=== PATIENT | female | born 1960 | race American Indian/Alaskan Native ===

== ENCOUNTER 2020-07-22 20:22 | Emergency (ER) | payer BC ==
--- NOTE | 2020-07-22 22:57 | Cat Scan Report ---
CT HEAD WITHOUT CONTRAST INDICATION / CLINICAL INFORMATION: neuro deficits <6hrs or sx present upon awakening. TECHNIQUE: All CT scans at this location are performed using CT dose reduction for ALARA by means of automated e xposure control. COMPARISON: None available. FINDINGS: HEMORRHAGE: No evidence of intracranial hemorrhage or extra-axial fluid collection. EXTRA-AXIAL SPACES: Cortical sulci, sylvian fissures and basilar cisterns have an unremarkable appear ance. VENTRICULAR SYSTEM: The third and lateral ventricles are of normal size and configuration. CEREBRAL PARENCHYMA: No areas of abnormal brain parenchymal attenuation are identified. There is no i ndication of recent infarction. MIDLINE SHIFT OR HERNIATION: There is no mass effect. CEREBELLUM / BRAINSTEM: Brainstem and cerebellum have an unremarkable appearance. MIDLINE STRUCTURES:No abnormalities of the pituitary gland or pineal region are identified. INTRACRANIAL VESSELS:No abnormalities are identified on this noncontrast head CT. ORBITS: visualized portions of the orbits have an unremarkable appearance. SOFT TISSUES of HEAD: No significant abnormality. CALVARIUM: Evaluation of bone windows reveals no abnormalities. PARANASAL SINUSES / MASTOID AIR CELLS: Visualized portions of the paranasal sinuses are free from inf lammatory mucosal disease. Mastoid air cells are normally pneumatized. IMPRESSION: 1. No intracranial abnormalities are identified on head CT without contrast. Signer Name: Donte Soto MD Signed: 07/22/2020 10:53 PM Workstation Name: [id number]
[2020-07-22 22:58] LABS: Basophils % (Auto) 0.4 % (0.0-1.8); Eosinophils % (Auto) 0.6 % (0.0-4.3); Hematocrit 36.4 % (30.3-42.9); Lymphocytes # (Auto) 0.8 K/mm3 (1.2-5.4); Mean Corpuscular HGB Conc 33 % (30-34); Mean Corpuscular Volume 83 fl (79-97); Monocytes # (Auto) 0.2 K/mm3 (0.0-0.8); Monocytes % (Auto) 3.5 % (0.0-7.3); Platelet Count 185 K/mm3 (140-440); Red Blood Count 4.39 M/mm3 (3.65-5.03); Red Cell Distribution Width 16.5 % (13.2-15.2)
[2020-07-22 23:10] LABS: Blood Urea Nitrogen 9 mg/dL (7-17); Calcium 9.5 mg/dL (8.4-10.2); Hemolysis Index 5
[2020-07-22 23:18] LABS: INR 1.17 (0.87-1.13); Partial Thromboplastin Time 26.9 Sec. (24.2-36.6)
[2020-07-22 23:20] LABS: BUN/Creatinine Ratio 13
--- NOTE | 2020-07-22 23:55 | Emergency Department Report ---
ED Headache HPI - General Chief Complaint: Headache Stated Complaint: HEADACHE Source: patient - History of Present Illness Initial Comments: Patient is a 60-year-old -[place] female with a history of osteoarthritis and asthma who presents to the ED with complaint of acute onset persistent left retro-orbital headache that radiates to the parietal and occipital scalp persistently for the last 6 hours. Patient also complains of nausea and blurry vision in the left eye. Patient states that she took Tylenol prior to arrival in the ED and that the pain though improved significantly, but is still present. Patient denies dizziness, syncope, chest pain, shortness of breath, neck pain, back pain, change in vision, lightheadedness, change in speech, upper and lower extremity weakness, numbness and tingling, dysphagia, dysphonia, cough, traumatic injury, fever and chills, nasal and sinus congestion or sore throat. Timing/Duration: 4-6 hours, constant, waxing and waning Quality: severe, constant Head Injury Location: frontal, occipital Recent Head Trauma: no recent headache/trauma Associated Symptoms: denies symptoms, nausea/vomiting. denies: confusion, fatigue, facial pain, fever/chills, flushing, loss of consciousness, nasal congestion, nasal drainage, numbness in legs/feet, seizures, sinus infection, stiff neck, vision changes, weakness, other Allergies/Adverse Reactions: Allergies latex Allergy (Verified 12/21/19 15:46) Rash Home Medications: Ambulatory Orders Butalb/Acetamin/Caff 50-325-40 [Fioricet 50-325-40] 1 - 2 tab PO Q6HR PRN #12 tab 07/22/20 Ibuprofen [Motrin] 600 mg PO Q8H PRN #24 tablet 07/22/20 Ondansetron [Zofran Odt] 4 mg PO Q6HR PRN #20 tab.rapdis 07/22/20 ED Review of Systems ROS: Stated complaint: HEADACHE Other details as noted in HPI Constitutional: denies: chills, fever Eyes: denies: eye pain, eye discharge, vision change ENT: denies: ear pain, throat pain Respiratory: denies: cough, shortness of breath, wheezing Cardiovascular: denies: chest pain, palpitations Endocrine: no symptoms reported Gastrointestinal: nausea. denies: abdominal pain, diarrhea Genitourinary: denies: urgency, dysuria, discharge Musculoskeletal: denies: back pain, joint swelling, arthralgia Skin: denies: rash, lesions Neurological: headache. denies: weakness, paresthesias Psychiatric: denies: anxiety, depression Hematological/Lymphatic: denies: easy bleeding, easy bruising ED Past Medical Hx - Past Medical History Previous Medical History?: Yes Hx Hypertension: No Hx CVA: No Hx Heart Attack/AMI: No Hx Congestive Heart Failure: No Hx Diabetes: No Hx Liver Disease: No Hx Renal Disease: No Hx Sickle Cell Disease: No Hx Arthritis: Yes Hx Seizures: No Hx Asthma: Yes (last inhaler use 06/2019) Hx COPD: No Hx HIV: No - Surgical History Hx Pacemaker: No Hx Internal Defibrillator: No Additional Surgical History: Hysterectomy. lumpectomy - Social History Smoking Status: Never Smoker Substance Use Type: None - Medications Home Medications: Home Medications Medication Instructions Recorded Confirmed Last Taken Type Butalb/Acetamin/Caff 50-325-40 1 - 2 tab PO Q6HR PRN #12 tab 07/22/20 Unknown Rx [Fioricet 50-325-40] Ibuprofen [Motrin] 600 mg PO Q8H PRN #24 tablet 07/22/20 Unknown Rx Ondansetron [Zofran Odt] 4 mg PO Q6HR PRN #20 tab.rapdis 07/22/20 Unknown Rx ED Physical Exam - General Limitations: No Limitations General appearance: alert, in no apparent distress - Head Head exam: Present: atraumatic, normocephalic, normal inspection - Eye Eye exam: Present: normal appearance, PERRL, EOMI Pupils: Present: normal accommodation - ENT ENT exam: Present: normal exam, normal orophraynx, mucous membranes moist, TM's normal bilaterally, normal external ear exam - Neck Neck exam: Present: normal inspection, full ROM - Respiratory Respiratory exam: Present: normal lung sounds bilaterally. Absent: respiratory distress, wheezes, rales, rhonchi, chest wall tenderness, accessory muscle use - Cardiovascular Cardiovascular Exam: Present: regular rate, normal rhythm, normal heart sounds. Absent: systolic murmur, diastolic murmur, rubs, gallop - GI/Abdominal GI/Abdominal exam: Present: soft, normal bowel sounds. Absent: tenderness, guarding, rebound, hyperactive bowel sounds - Extremities Exam Extremities exam: Present: normal inspection, full ROM, normal capillary refill - Back Exam Back exam: Present: normal inspection, full ROM. Absent: tenderness, CVA tenderness (R), CVA tenderness (L), muscle spasm, paraspinal tenderness, vertebral tenderness - Neurological Exam Neurological exam: Present: alert, oriented X3, CN II-XII intact, normal gait, reflexes normal - Psychiatric Psychiatric exam: Present: normal affect, normal mood - Skin Skin exam: Present: warm, dry, intact, normal color. Absent: rash ED Course Vital Signs 07/22/20 20:26 Temperature 98.6 F Pulse Rate 99 H Respiratory 18 Rate Blood Pressure 158/100 O2 Sat by Pulse 93 Oximetry ED Medical Decision Making - Lab Data Result diagrams: 07/22/20 22:22 07/22/20 22:22 - Radiology Data Radiology results: report reviewed, image reviewed Findings [facility] [address] [place] [address] Cat Scan Report Signed Patient: CHRIS HATCH MR#: [id number] : 1960 Acct:[id number] Age/Sex: 60 / F ADM Date: 07/22/20 Loc: ED Attending Dr: Ordering Physician: GIACOMO DEL CID MD Date of Service: 07/22/20 Procedure(s): CT head/brain wo con Accession Number(s): [id number] cc: GIACOMO DEL CID MD CT HEAD WITHOUT CONTRAST INDICATION / CLINICAL INFORMATION: neuro deficits <6hrs or sx present upon awakening. TECHNIQUE: All CT scans at this location are performed using CT dose reduction for ALARA by means of automated exposure control. COMPARISON: None available. FINDINGS: HEMORRHAGE: No evidence of intracranial hemorrhage or extra-axial fluid collection. EXTRA-AXIAL SPACES: Cortical sulci, sylvian fissures and basilar cisterns have an unremarkable appearance. VENTRICULAR SYSTEM: The third and lateral ventricles are of normal size and configuration. CEREBRAL PARENCHYMA: No areas of abnormal brain parenchymal attenuation are identified. There is no indication of recent infarction. MIDLINE SHIFT OR HERNIATION: There is no mass effect. CEREBELLUM / BRAINSTEM: Brainstem and cerebellum have an unremarkable appearance. MIDLINE STRUCTURES:No abnormalities of the pituitary gland or pineal region are identified. INTRACRANIAL VESSELS:No abnormalities are identified on this noncontrast head CT. ORBITS: visualized portions of the orbits have an unremarkable appearance. SOFT TISSUES of HEAD: No significant abnormality. CALVARIUM: Evaluation of bone windows reveals no abnormalities. PARANASAL SINUSES / MASTOID AIR CELLS: Visualized portions of the paranasal sinuses are free from inflammatory mucosal disease. Mastoid air cells are normally pneumatized. IMPRESSION: 1. No intracranial abnormalities are identified on head CT without contrast. Signer Name: Donte Soto MD Signed: 07/22/2020 10:53 PM Workstation Name: [id number] Transcribed By: Dictated By: Donte Soto MD Electronically Authenticated By: Donte Soto MD Signed Date/Time: 07/22/202252 DD/ 51 TD/TT: - Medical Decision Making This is a 60-year-old -[place] female with a history of osteoarthritis and asthma who presents to the ED with complaint of acute onset persistent left retro-orbital headache that radiates to the parietal and occipital scalp persistently for the last 6 hours. Patient also complains of nausea and blurry vision in the left eye. Patient states that she took Tylenol prior to arrival in the ED and that the pain though improved significantly, but is still present. In the ED, patient is alert and oriented x3 and is not in distress but appears to be in pain. Patient was treated for pain in the ED. Lab test results were reviewed and are all nonactionable. The head CT scan without contrast showed no acute intracranial abnormalities or hemorrhage. On reevaluation, patient pain is well controlled medication. Patient will discharge home on pain medications and advised to follow-up with her primary care physician in 3 to 5 days for reevaluation or return to the ED immediately if her symptoms get worse. - Differential Diagnosis sinusitis; sinus headache; tension headache; migraine headache;cluster h/a Critical care attestation.: If time is entered above; I have spent that time in minutes in the direct care of this critically ill patient, excluding procedure time. ED Disposition Clinical Impression: Severe frontal headaches Cluster headache syndrome, unspecified Qualifiers: Headache chronicity pattern: unspecified pattern Intractability: not intractable Qualified Code(s): G44.009 - Cluster headache syndrome, unspecified, not intractable Disposition: DC-01 TO HOME OR SELFCARE Is pt being admited?: No Does the pt Need Aspirin: No Condition: Stable Instructions: General Headache Without Cause, [id number], Sinus Headache, [id number] Additional Instructions: All lab test results were reviewed and are all nonactionable. The head CT scan without contrast showed no acute intracranial abnormalities or hemorrhage. Therefore take medications with food, drink plenty of fluids and follow-up with your primary care physician in 3 to 5 days for reevaluation. Return to the ED immediately if symptoms get worse. Prescriptions: Butalb/Acetamin/Caff 50-325-40 [Fioricet 50-325-40] 1 - 2 tab PO Q6HR PRN #12 tab PRN Reason: Headache Ibuprofen [Motrin] 600 mg PO Q8H PRN #24 tablet PRN Reason: Pain Ondansetron [Zofran Odt] 4 mg PO Q6HR PRN #20 tab.rapdis PRN Reason: Nausea Referrals: [facility] [Provider Group] - 3-5 Days Time of Disposition: 23:56 Print Language: TUNISIAN
[2020-07-22] MEDS ORDERED: ONDANSETRON 4 MG ODT TAB PO ONE (23:59)
[2020-07-22] MEDS ORDERED: IBUPROFEN 600 MG TAB PO ONE (23:59)
[2020-07-22] MEDS ORDERED: BUTALB/ACETAMINOPHEN/CAFFEINE TAB PO ONE (23:59)
[2020-07-23 00:55] LABS: Alanine Aminotransferase 15 units/L (7-56); Albumin 4.6 g/dL (3.9-5)
[2020-07-23 00:58] LABS: Bilirubin,Direct < 0.2 mg/dL (0-0.2)
[2020-07-23 02:37] VITALS: BP 135/78
== END 2020-07-23 02:38 | disposition home or self-care (01) ==
LOC: ED 20:22
DX: G44.009 Cluster headache syndrome, unspecified, not intractable (principal); J45.909 Unspecified asthma, uncomplicated; Z90.710 Acquired absence of both cervix and uterus; Z98.890 Other specified postprocedural states; Z79.1 Long term (current) use of non-steroidal anti-inflammatories (NSAID); Z79.899 Other long term (current) drug therapy; Z91.040 Latex allergy status
CPT/HCPCS: 36415; 70450; 80048; 80076; 84484; 85025; 85610; 85670; 85730; 93005; Q0162

== ENCOUNTER 2020-09-07 16:26 | Emergency (ER) | payer BC ==
[2020-09-07 16:40] VITALS: BP 162/93
--- NOTE | 2020-09-07 16:41 | Emergency Department Report ---
- General Stated complaint: LEFT HAND PAIN Time Seen by Provider: 09/07/20 16:37 Source: patient Mode of arrival: Ambulatory Limitations: No Limitations - History of Present Illness Initial comments: Patient is a 6-year-old female presents emergency room complaints of left hand rash that began a week ago. She states that she does have a history of eczema. 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 She states that she went to the pharmacy and they advised her that it could be secondarily due to her frequent handwashing and advised her to use Vaseline. She states that the rash has been worsening. She states that it is painful, itchy, she states that since yesterday she has noticed some drainage of the hand. She denies any fever, hand swelling, difficulty using the hand, numbness, weakness, rash anywhere else, difficulty swallowing, difficulty breathing. She denies any new foods, lotions, detergents, medications, anything new that she is aware of. She denies any other past medical history. She has an allergy to latex. She denies coming into contacts with latex that she is aware of. She denies any history of diabetes, she states that she last had routine blood work in May 2020 and reports it was normal. - Related Data Previous Rx's Medication Instructions Recorded Last Taken Type Butalb/Acetamin/Caff 50-325-40 1 - 2 tab PO Q6HR PRN #12 tab 07/22/20 Unknown Rx [Fioricet 50-325-40] Ibuprofen [Motrin] 600 mg PO Q8H PRN #24 tablet 07/22/20 Unknown Rx Ondansetron [Zofran Odt] 4 mg PO Q6HR PRN #20 tab.rapdis 07/22/20 Unknown Rx Mupirocin [Bactroban 2% OINT] 1 applic TP TID #1 tube 09/07/20 Unknown Rx Prednisone [predniSONE 10 mg 10 mg PO .TAPER #1 tab.ds.pk 09/07/20 Unknown Rx (6-Day Pack, 21 Tabs)] Triamcinolone 0.1% [Kenalog 0.1% 1 applic TP TID #1 tube 09/07/20 Unknown Rx CREAM] cephALEXin [Keflex] 500 mg PO QID 7 Days #28 capsule 09/07/20 Unknown Rx diphenhydrAMINE [Benadryl CAP] 25 mg PO Q6HR PRN #12 capsule 09/07/20 Unknown Rx Allergies Allergy/AdvReac Type Severity Reaction Status Date / Time latex Allergy Rash Verified 12/21/19 15:46 Abscess Boil HPI - HPI Stated Complaint: LEFT HAND PAIN Time Seen by Provider: 09/07/20 16:37 Home Medications: Previous Rx's Medication Instructions Recorded Last Taken Type Butalb/Acetamin/Caff 50-325-40 1 - 2 tab PO Q6HR PRN #12 tab 07/22/20 Unknown Rx [Fioricet 50-325-40] Ibuprofen [Motrin] 600 mg PO Q8H PRN #24 tablet 07/22/20 Unknown Rx Ondansetron [Zofran Odt] 4 mg PO Q6HR PRN #20 tab.rapdis 07/22/20 Unknown Rx Mupirocin [Bactroban 2% OINT] 1 applic TP TID #1 tube 09/07/20 Unknown Rx Prednisone [predniSONE 10 mg 10 mg PO .TAPER #1 tab.ds.pk 09/07/20 Unknown Rx (6-Day Pack, 21 Tabs)] Triamcinolone 0.1% [Kenalog 0.1% 1 applic TP TID #1 tube 09/07/20 Unknown Rx CREAM] cephALEXin [Keflex] 500 mg PO QID 7 Days #28 capsule 09/07/20 Unknown Rx diphenhydrAMINE [Benadryl CAP] 25 mg PO Q6HR PRN #12 capsule 09/07/20 Unknown Rx Allergies/Adverse Reactions: Allergies Allergy/AdvReac Type Severity Reaction Status Date / Time latex Allergy Rash Verified 12/21/19 15:46 ED Review of Systems ROS: Stated complaint: LEFT HAND PAIN Other details as noted in HPI Comment: All other systems reviewed and negative ED Past Medical Hx - Past Medical History Hx Hypertension: No Hx CVA: No Hx Heart Attack/AMI: No Hx Congestive Heart Failure: No Hx Diabetes: No Hx Liver Disease: No Hx Renal Disease: No Hx Sickle Cell Disease: No Hx Arthritis: Yes Hx Seizures: No Hx Asthma: Yes (last inhaler use 06/2019) Hx COPD: No Hx HIV: No - Surgical History Hx Pacemaker: No Hx Internal Defibrillator: No Additional Surgical History: Hysterectomy. lumpectomy - Social History Smoking Status: Never Smoker Substance Use Type: None - Medications Home Medications: Home Medications Medication Instructions Recorded Confirmed Last Taken Type Butalb/Acetamin/Caff 50-325-40 1 - 2 tab PO Q6HR PRN #12 tab 07/22/20 Unknown Rx [Fioricet 50-325-40] Ibuprofen [Motrin] 600 mg PO Q8H PRN #24 tablet 07/22/20 Unknown Rx Ondansetron [Zofran Odt] 4 mg PO Q6HR PRN #20 tab.rapdis 07/22/20 Unknown Rx Mupirocin [Bactroban 2% OINT] 1 applic TP TID #1 tube 09/07/20 Unknown Rx Prednisone [predniSONE 10 mg 10 mg PO .TAPER #1 tab.ds.pk 09/07/20 Unknown Rx (6-Day Pack, 21 Tabs)] Triamcinolone 0.1% [Kenalog 0.1% 1 applic TP TID #1 tube 09/07/20 Unknown Rx CREAM] cephALEXin [Keflex] 500 mg PO QID 7 Days #28 capsule 09/07/20 Unknown Rx diphenhydrAMINE [Benadryl CAP] 25 mg PO Q6HR PRN #12 capsule 09/07/20 Unknown Rx ED Physical Exam - General Limitations: No Limitations General appearance: alert, in no apparent distress - Head Head exam: Present: atraumatic, normocephalic - Eye Eye exam: Present: normal appearance - ENT ENT exam: Present: mucous membranes moist - Respiratory Respiratory exam: Absent: respiratory distress, accessory muscle use - Neurological Exam Neurological exam: Present: alert, oriented X3 - Psychiatric Psychiatric exam: Present: normal affect, normal mood - Skin Skin exam: Present: warm, dry, rash (neurovascularly intact LUE), other (dry, hypertrophied skin with hyperpigmentation present to the dorsal surface of the left hand, there are two areas with honey colored crusting and mild erythema, skin colored papules, no edema of the hand, no significant surrounding erythema, induration or fluctuance, no blistering or skin denuding) ED Course Vital Signs 09/07/20 16:37 Temperature 98.5 F Pulse Rate 95 H Respiratory 18 Rate Blood Pressure 162/93 O2 Sat by Pulse 98 Oximetry ED Medical Decision Making - Medical Decision Making Patient is a 6-year-old female presents emergency room complaints of left hand rash that began a week ago. She states that she does have a history of eczema. 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 She states that she went to the pharmacy and they advised her that it could be secondarily due to her frequent handwashing and advised her to use Vaseline. She states that the rash has been worsening. She states that it is painful, itchy, she states that since yesterday she has noticed some drainage of the hand. She denies any fever, hand swelling, difficulty using the hand, numbness, weakness, rash anywhere else, difficulty swallowing, difficulty breathing. She denies any new foods, lotions, detergents, medications, anything new that she is aware of. She denies any other past medical history. She has an allergy to latex. She denies coming into contacts with latex that she is aware of. She denies any history of diabetes, she states that she last had routine blood work in May 2020 and reports it was normal. vss. on exam:dry, hypertrophied skin with hyperpigmentation present to the dorsal surface of the left hand, there are two areas with honey colored crusting and mild erythema, skin colored papules, no edema of the hand, no significant surrounding erythema, induration or fluctuance, no blistering or skin denuding, neurovascularly intact. Examination appears consistent with eczema/contact dermatitis could be worsening due to frequent handwashing, it appears to have a mild secondary cellulitis. Given prescription for Benadryl, prednisone, triamcinolone, mupirocin ointment, Keflex. Advised patient Please use medication as prescribed. Please separate using the ointments by one hour. Benadryl may cause drowsiness, do not drive or operate heavy machinery while taking. Please follow-up with a primary care doctor in the next 3 to 5 days for reexamination. Return to emergency room for new or worsening symptoms. Critical care attestation.: If time is entered above; I have spent that time in minutes in the direct care of this critically ill patient, excluding procedure time. ED Disposition Clinical Impression: Contact dermatitis and eczema Cellulitis Qualifiers: Site of cellulitis: extremity Site of cellulitis of extremity: upper extremity Laterality: left Qualified Code(s): L03.114 - Cellulitis of left upper limb Disposition: DC-01 TO HOME OR SELFCARE Is pt being admited?: No Does the pt Need Aspirin: No Condition: Stable Instructions: Cellulitis, Adult, Eczema, Contact Dermatitis, [id number] Additional Instructions: Please use medication as prescribed. Please separate using the ointments by one hour. Benadryl may cause drowsiness, do not drive or operate heavy machinery while taking. Please follow-up with a primary care doctor in the next 3 to 5 days for reexamination. Return to emergency room for new or worsening symptoms. Prescriptions: Mupirocin [Bactroban 2% OINT] 1 applic TP TID #1 tube diphenhydrAMINE [Benadryl CAP] 25 mg PO Q6HR PRN #12 capsule PRN Reason: itching cephALEXin [Keflex] 500 mg PO QID 7 Days #28 capsule Triamcinolone 0.1% [Kenalog 0.1% CREAM] 1 applic TP TID #1 tube Prednisone [predniSONE 10 mg (6-Day Pack, 21 Tabs)] 10 mg PO .TAPER #1 tab.ds.pk Referrals: TYRA ZAMAN MD [Primary Care Provider] - 3-5 Days Time of Disposition: 16:42 Print Language: PASHTO
== END 2020-09-07 17:23 | disposition home or self-care (01) ==
LOC: ED 16:26
DX: L25.9 Unspecified contact dermatitis, unspecified cause (principal); L03.90 Cellulitis, unspecified; J45.909 Unspecified asthma, uncomplicated; M19.90 Unspecified osteoarthritis, unspecified site; Z79.899 Other long term (current) drug therapy; Z91.040 Latex allergy status; Z90.710 Acquired absence of both cervix and uterus
CPT/HCPCS: 99282